=== PATIENT | male | born 1995 | race Caucasian/White ===

== ENCOUNTER 2021-04-15 09:12 | Emergency (ER) | payer SELFPAY ==
--- NOTE | 2021-04-15 09:28 | XR_ITS ---
PROCEDURE INFORMATION: Exam: XR Right Ankle Exam date and time: 04/15/2021 9:28 AM Age: 25 years old Clinical indication: Pain; Ankle; Right; Additional info: Twisted ankle TECHNIQUE: Imaging protocol: XR Right ankle. Views: 3 or more views. COMPARISON: No relevant prior studies available. FINDINGS: Bones/joints: No acute bony injury or malalignment in the visualized right ankle. Soft tissues: Mild soft tissue swelling. IMPRESSION: No acute bony injury or malalignment in the visualized right ankle.
[2021-04-15 09:30] VITALS: BP 136/87; PULSE 76; RESP 16; TEMP 37; O2SAT 98; BMI 23.9
--- NOTE | 2021-04-15 09:53 | HMH.EDUTC ---
[facility] [place] Disposition Clinical Impression: Ankle sprain Qualifiers: Encounter type: initial encounter Involved ligament of ankle: other ligament Laterality: right Qualified Code(s): S93.491A - Sprain of other ligament of right ankle, initial encounter Disposition: Home, Self-Care Condition on Discharge: Good Instructions: How To Perform RICE (Rest, Ice, Compress, Elevate) Additional Instructions: *weight bearing as tolerated *RICE, Rest the extremity, Ice 15-20 minutes 3-4 times daily, Compress- wear the job wrap as discussed as much as possible to help reduce swelling and pain, Elevate the extremity when at rest *Job wrap/air splint is for support and help control swelling, use it except in the shower. Be sure that is not to tight but not to loose either *Elevate when resting *Ibuprofen every 6-8 hours as needed for pain an inflammation. 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 Referrals: Provider,Referral, MD [Primary Care Provider] - As needed Time of Disposition: 10:11 Medical Decision Making - Davion Inquiry Pt receiving controlled substance: No Davion was queried for this patient: No Vital Signs: 04/15/21 09:30 04/15/21 10:23 Temperature 98.6 F 98.3 F Temperature Source Oral Pulse Rate 78 Pulse Rate [Left Radial] 76 Respiratory Rate 16 18 Blood Pressure 132/85 Blood Pressure [Right Arm] 136/87 Blood Pressure Mean [Right Arm] 103 02 Sat by Pulse Oximetry 98 Oxygen Delivery Method Room Air - Radiology Data #1 Image(s): Ankle Image Reviewed: Yes I have reviewed radiologist's interpretation IMPRESSION: No acute bony injury or malalignment in the visualized right ankle. [facility] [place] HPI - General Stated complaint: right ankle injury Time Seen by Provider: 04/15/21 09:57 Mode of Arrival: Ambulatory Source of Information: Patient Limitations: No Limitations Description of Symptoms (Recalled from Triage Doc. by RN): Right ankle injury, happened HEENT Symptoms (Recalled from RN notes): No Resp Symptoms (Recalled from RN notes): No Skin Symptoms (Recalled from RN notes): No MS Symptoms (Recalled from RN notes): Yes Functional Status (Recalled from RN notes): na - History of Present Illness Provider Complaint: Patient states that he slipped and twisted his right ankle on States that ever since he has been having pain and swelling in his right ankle area State that hurts at times when he walks on it States that he has been taking Motrin and it helps some with the pain Denies any other injury - Related Data Allergies Allergy/AdvReac Type Severity Reaction Status Date / Time No Known Allergies Allergy Verified 04/15/21 09:55 - Worker's Comp Is this a Worker's Comp case?: No [facility] History - Hepatitis A Screen Drug use history?: No High risk sexual behaviors?: No History of sexually transmitted infection?: No Currently employed?: No Childcare worker?: No Do you have indoor plumbing?: Yes Do you have electricity?: Yes Attestation statement:: This patient has been screened for Hepatitis A risk factors. I have reviewed the patient's past medical history: Yes ROS Obtained: Yes All systems reviewed & no additional complaints, Yes Systems reviewed as appropriate & no additional complaints - Constitutional Constitutional: Reports system reviewed and no additional complaints, except as docu - ENT Ears, Nose, Mouth, and Throat: Reports system reviewed and no additional complaints, except as docu - Cardiovascular Cardiovascular: Reports system reviewed and no additional complaints, except as docu - Respiratory
[2021-04-15 10:23] VITALS: BP 132/85; PULSE 78; RESP 18; TEMP 36.8
== END 2021-04-15 10:24 | disposition home or self-care (01) ==
PROVIDERS: Emergency Provider Nurse Practitioner
DX: S93.491A Sprain of other ligament of right ankle, initial encounter (principal); W01.0XXA Fall on same level from slipping, tripping and stumbling without subsequent striking against object, initial encounter; Y92.019 Unspecified place in single-family (private) house as the place of occurrence of the external cause
CPT/HCPCS: 29515; 73610; 99202; G0463

== ENCOUNTER 2024-05-11 14:53 | Emergency (ER) | payer SELFPAY ==
[2024-05-11 14:55] VITALS: BP 149/100; PULSE 95; RESP 18; TEMP 37.2; O2SAT 98; BMI 24.6
[2024-05-11 15:00] VITALS: BP 149/100; PULSE 93; RESP 16; O2SAT 96
--- NOTE | 2024-05-11 15:25 | HMH.EDGENADL ---
Discharge Plan Disposition Patient Disposition: Home, Self-Care Condition: Good Prescriptions Prescriptions: No Action No Known Home Medications Referrals Follow up/Referrals: Denilson Mcnair MD [Staff Physician] - See instructions (Abdominal lymphadenopathy) Provider,MD Ashley [Primary Care Provider] - See instructions Activity Restrictions/Add. Instructions Additional Instructions/Restrictions: Please take 10 capfuls of MiraLAX in 32 ounces of grape Gatorade. May need to take MiraLAX daily to decrease stool burden. Follow-up with your PCP. I have referred you to hematology oncology for a significant amount of lymph nodes in your abdomen that are nonspecific. Please follow-up with your PCP for recheck in 1 week. Return to ER for any worsening signs or symptoms as needed. Clinical Impressions Clinical Impression: Lymphadenopathy Constipation Qualifiers: Constipation type: unspecified constipation type Qualified Code(s): K59.00 - Constipation, unspecified Instructions Patient Instructions: DI for Constipation, DI for Lymphadenopathy Discharge ED Provider: Dinesh Reyes General Adult HPI <ALONSO Whiting - Last Filed: 05/11/24 19:20> General Chief complaint: PAIN Stated complaint: fever 102, lower back pain Time Seen by Provider: 05/11/24 15:25 Mode of Arrival: Ambulatory Source of Information: Patient Limitations: No Limitations Description of Symptoms (Recalled from ER Triage Doc. by RN): Patient states he has lower back pain with fever for 4 days. Denies N/V/D. States that he was seen by his PCP and was instructed to come to the ER for further evaluation. History of Present Illness HPI narrative: She presents for lower back pain and fever for the last 4 days. Patient states his symptoms get better with Tylenol but come right back when the Tylenol wears off. He denies nausea vomiting diarrhea chest pain shortness of breath hemoptysis hematochezia melena. Related Data Home Medications Medication Instructions Recorded Confirmed No Known Home Medications 05/11/24 05/11/24 Allergies Allergy/AdvReac Type Severity Reaction Status Date / Time No Known Allergies Allergy Verified 05/11/24 13:47 PFSH <ALONSO Whiting - Last Filed: 05/11/24 19:20> [facility] Disclaimer: The information contained in this section may have been updated after the patient was seen, as this information can be updated by other users. Medical History (Updated 05/11/24 @ 17:42 by ALONSO Whiting) Ankle sprain Surgical History (Updated 05/11/24 @ 13:48 by Lori Shaver) No significant past surgical history Family History (Updated 05/11/24 @ 13:48 by Lori Shaver) Other No significant family history Social History (Updated 05/11/24 @ 13:48 by Lori Shaver) Smoking Status: Never smoker alcohol intake: never current occupational status: employed Travel in the last 8 weeks: None <ALONSO Whiting - Last Filed: 05/11/24 19:20> ROS Obtained: Yes Systems reviewed as appropriate & no additional complaints except as documented Physical Exam <ALONSO Whiting - Last Filed: 05/11/24 19:20> General General appearance: alert and in no apparent distress Respiratory Respiratory exam: Present normal lung sounds bilaterally; Absent wheezes or stridor Cardiovascular Cardiovascular exam: Present regular rate and normal rhythm Abdominal Exam Abdominal exam: Present soft, tenderness (Slightly more focal in the right lower quadrant) and normal bowel sounds; Absent guarding, rebound or rigidity Extremities Exam Extremities exam: Present normal inspection and full ROM Back Exam Back exam: Present normal inspection, full ROM, tenderness (Slightly to palpation and percussion on the right) and CVA tenderness (R); Absent CVA tenderness (L) Neurological Exam Neurological exam: Present alert and oriented X3 Medical Decision Making <ALONSO Whiting - Last Filed: 05/11/24 19:20> Medical Records Medical records reviewed: Yes I reviewed the patient's medical records. Davion Inquiry Pt receiving controlled substance: No Vital Signs: 05/11/24 14:55 05/11/24 15:00 05/11/24 15:31 Temperature 98.9 F Temperature Source Oral Pulse Rate 93 H 101 H Pulse Rate [Radial] 95 H Respiratory Rate 18 16 Blood Pressure 149/100 H 163/98 H Blood Pressure [Right Arm] 149/100 H Blood Pressure Mean [Right Arm] 116 Blood Pressure Source Blood Pressure Source [Right Arm] Automatic Cuff Blood Pressure Position Blood Pressure Position [Right Arm] Sitting 02 Sat by Pulse Oximetry 98 96 97 Oxygen Delivery Method Room Air Room Air Room Air 05/11/24 16:14 05/11/24 17:33 05/11/24 17:43 Temperature 98.6 F Temperature Source Oral Pulse Rate 86 78 70 Pulse Rate [Radial] Respiratory Rate 18 Blood Pressure 140/86 124/84 124/84 Blood Pressure [Right Arm] Blood Pressure Mean [Right Arm] Blood Pressure Source Automatic Cuff Blood Pressure Source [Right Arm] Blood Pressure Position Sitting Blood Pressure Position [Right Arm] 02 Sat by Pulse Oximetry 97 98 Oxygen Delivery Method Room Air Room Air Room Air Lab Data Lab results reviewed: Yes I reviewed the patient's lab results. Lab Results 05/11/24 15:20: WBC 9.5, RBC 4.89, Hgb 15.0, Hct 45.3, MCV 92.7, MCH 30.6, MCHC 33.0, RDW 13.4, Plt Count 213, MPV 7.1 L, Neut % (Auto) 84.9 H, Lymph % (Auto) 7.8 L, [place] % (Auto) 6.5, Eos % (Auto) 0.1, Baso % (Auto) 0.7, Neut # (Auto) 8.1 H, Lymph # (Auto) 0.7, [place] # (Auto) 0.6, Eos # (Auto) 0.0, Baso # (Auto) 0.1, Sodium 132 L, Potassium 3.9, Chloride 97 L, Carbon Dioxide 25, Anion Gap 13.9, BUN 11, Creatinine 0.90, Estimated Creat Clear 125, Estimated GFR 99, Est GFR ( Amer) 120, Glucose 138 H, Lactate 0.9, Calcium 9.5, Total Bilirubin 0.8, AST 57, ALT 47, Alkaline Phosphatase 64, Total Protein 8.2, Albumin 4.7, Globulin 3.5 H, Albumin/Globulin Ratio 1.3, Lipase 71 05/11/24 16:14: Urine Color Yellow, Urine Appearance Clear, Urine pH 6.5, Ur Specific [place] <= 1.005, Urine Protein Negative, Urine Glucose (UA) Negative, Urine Ketones Negative, Urine Blood Trace-i, Urine Nitrate Negative, Urine Bilirubin Negative, Urine Urobilinogen 0.2, Ur Leukocyte Esterase Trace, Urine RBC 3-5, Urine WBC 3-5, Ur Squamous Epith Cells 3-5, Urine Bacteria Trace 05/11/24 15:20 05/11/24 15:20 Orders (Tests/Meds): ED MEDICATIONS Discontinued Medications Generic Name Dose Route Start Last Admin Trade Name Chepeq PRN Reason Stop Dose Admin Acetaminophen 1,000 mg 05/11/24 15:32 05/11/24 15:46 Acetaminophen 1,000mg/100ml Vial IV 05/11/24 15:33 1,000 mg ONCE ONE Administration Lactated Ringer's 1,000 mls @ 999 mls/hr 05/11/24 15:32 05/11/24 15:47 Lactated Ringer's 1000 Ml Bag IV 05/11/24 16:32 999 mls/hr .Q1H1M ONE Administration Iopamidol 75 ml 05/11/24 16:21 05/11/24 16:22 Iopamidol-370 (76%);100ml Bottle IV 05/11/24 16:22 75 ml ONCE ONE Administration Ketorolac Tromethamine 15 mg 05/11/24 15:32 05/11/24 15:46 Ketorolac 30mg/Ml Vial IV 05/11/24 15:33 15 mg ONCE ONE Administration Sodium Chloride 10 ml 05/11/24 16:21 05/11/24 16:22 Sodium Chloride 0.9% 10ml Syr (Rad Only) IV 05/11/24 16:22 10 ml ONCE ONE Administration ORDERS Category Date Time Status CT abdomen pelvis w con Stat Cat Scan 05/11/24 15:32 Completed Chest XR -- portable [XR chest portable] Stat Exams 05/11/24 15:33 Completed CBC w/Auto Diff [Complete Blood Count Auto Diff] Stat Lab 05/11/24 15:20 Completed CMP [Comprehensive Metabolic Panel] Stat Lab 05/11/24 15:20 Completed Lactic Acid Stat Lab 05/11/24 15:20 Completed Lipase Stat Lab 05/11/24 15:20 Completed UA [Urinalysis and Microscopic] Stat Lab 05/11/24 16:14 Completed Medical Decision Narrative: In summary patient is a 28-year-old male who presents to the emergency department for evaluation of back pain and fever. Patient is hemodynamically stable upon arrival, afebrile. Physical exam is remarkable for significant diaphoresis of his back along with some bilateral very low back paraspinous muscle tenderness with no midline tenderness and some mild right lower quadrant tenderness to palpation.. Differential diagnosis includes ammonia versus pyelonephritis versus pancreatitis versus myalgias versus viral syndrome etc. Initial workup will be conducted with hematologic labs CT scan abdomen pelvis chest x-ray. Initial interventions include crystalloid bolus Toradol Tylenol. Initial workup reviewed by me shows that his hematologic labs are nonactionable urinalysis is bland however my informal review of his CT of the abdomen pelvis shows retroperitoneal lymphadenopathy along with some intraperitoneal lymphadenopathy but otherwise no other acute processes and my informal review of his plain film chest x-ray shows no acute processes. Upon repeat evaluation patient reports improvement and complete resolution of his constitutional symptoms after initial intervention. Given this is appropriate for discharge home with referral back to his PCP as well as a referral to hematology oncology for his lymphadenopathy. <Dinesh Reyes MD - Last Filed: 05/11/24 22:22> Vital Signs: 05/11/24 14:55 05/11/24 15:00 05/11/24 15:31 Temperature 98.9 F Temperature Source Oral Pulse Rate 93 H 101 H Pulse Rate [Radial] 95 H Respiratory Rate 18 16 Blood Pressure 149/100 H 163/98 H Blood Pressure [Right Arm] 149/100 H Blood Pressure Mean [Right Arm] 116 Blood Pressure Source Blood Pressure Source [Right Arm] Automatic Cuff Blood Pressure Position Blood Pressure Position [Right Arm] Sitting 02 Sat by Pulse Oximetry 98 96 97 Oxygen Delivery Method Room Air Room Air Room Air 05/11/24 16:14 05/11/24 17:33 05/11/24 17:43 Temperature 98.6 F Temperature Source Oral Pulse Rate 86 78 70 Pulse Rate [Radial] Respiratory Rate 18 Blood Pressure 140/86 124/84 124/84 Blood Pressure [Right Arm] Blood Pressure Mean [Right Arm] Blood Pressure Source Automatic Cuff Blood Pressure Source [Right Arm] Blood Pressure Position Sitting Blood Pressure Position [Right Arm] 02 Sat by Pulse Oximetry 97 98 Oxygen Delivery Method Room Air Room Air Room Air Lab Data Lab Results 05/11/24 15:20: WBC 9.5, RBC 4.89, Hgb 15.0, Hct 45.3, MCV 92.7, MCH 30.6, MCHC 33.0, RDW 13.4, Plt Count 213, MPV 7.1 L, Neut % (Auto) 84.9 H, Lymph % (Auto) 7.8 L, [place] % (Auto) 6.5, Eos % (Auto) 0.1, Baso % (Auto) 0.7, Neut # (Auto) 8.1 H, Lymph # (Auto) 0.7, [place] # (Auto) 0.6, Eos # (Auto) 0.0, Baso # (Auto) 0.1, Sodium 132 L, Potassium 3.9, Chloride 97 L, Carbon Dioxide 25, Anion Gap 13.9, BUN 11, Creatinine 0.90, Estimated Creat Clear 125, Estimated GFR 99, Est GFR ( Amer) 120, Glucose 138 H, Lactate 0.9, Calcium 9.5, Total Bilirubin 0.8, AST 57, ALT 47, Alkaline Phosphatase 64, Total Protein 8.2, Albumin 4.7, Globulin 3.5 H, Albumin/Globulin Ratio 1.3, Lipase 71 05/11/24 16:14: Urine Color Yellow, Urine Appearance Clear, Urine pH 6.5, Ur Specific [place] <= 1.005, Urine Protein Negative, Urine Glucose (UA) Negative, Urine Ketones Negative, Urine Blood Trace-i, Urine Nitrate Negative, Urine Bilirubin Negative, Urine Urobilinogen 0.2, Ur Leukocyte Esterase Trace, Urine RBC 3-5, Urine WBC 3-5, Ur Squamous Epith Cells 3-5, Urine Bacteria Trace Orders (Tests/Meds): ED MEDICATIONS Discontinued Medications Generic Name Dose Route Start Last Admin Trade Name Freq PRN Reason Stop Dose Admin Acetaminophen 1,000 mg 05/11/24 15:32 05/11/24 15:46 Acetaminophen 1,000mg/100ml Vial IV 05/11/24 15:33 1,000 mg ONCE ONE Administration Lactated Ringer's 1,000 mls @ 999 mls/hr 05/11/24 15:32 05/11/24 15:47 Lactated Ringer's 1000 Ml Bag IV 05/11/24 16:32 999 mls/hr .Q1H1M ONE Administration Iopamidol 75 ml 05/11/24 16:21 05/11/24 16:22 Iopamidol-370 (76%);100ml Bottle IV 05/11/24 16:22 75 ml ONCE ONE Administration Ketorolac Tromethamine 15 mg 05/11/24 15:32 05/11/24 15:46 Ketorolac 30mg/Ml Vial IV 05/11/24 15:33 15 mg ONCE ONE Administration Sodium Chloride 10 ml 05/11/24 16:21 05/11/24 16:22 Sodium Chloride 0.9% 10ml Syr (Rad Only) IV 05/11/24 16:22 10 ml ONCE ONE Administration ORDERS Category Date Time Status CT abdomen pelvis w con Stat Cat Scan 05/11/24 15:32 Completed Chest XR -- portable [XR chest portable] Stat Exams 05/11/24 15:33 Completed CBC w/Auto Diff [Complete Blood Count Auto Diff] Stat Lab 05/11/24 15:20 Completed CMP [Comprehensive Metabolic Panel] Stat Lab 05/11/24 15:20 Completed Lactic Acid Stat Lab 05/11/24 15:20 Completed Lipase Stat Lab 05/11/24 15:20 Completed UA [Urinalysis and Microscopic] Stat Lab 05/11/24 16:14 Completed Medical Decision Narrative: In summary patient is a 28-year-old male who presents to the emergency department for evaluation of back pain and fever. Patient is hemodynamically stable upon arrival, afebrile. Physical exam is remarkable for significant diaphoresis of his back along with some bilateral very low back paraspinous muscle tenderness with no midline tenderness and some mild right lower quadrant tenderness to palpation.. Differential diagnosis includes ammonia versus pyelonephritis versus pancreatitis versus myalgias versus viral syndrome etc. Initial workup will be conducted with hematologic labs CT scan abdomen pelvis chest x-ray. Initial interventions include crystalloid bolus Toradol Tylenol. Initial workup reviewed by me shows that his hematologic labs are nonactionable urinalysis is bland however my informal review of his CT of the abdomen pelvis shows retroperitoneal lymphadenopathy along with some intraperitoneal lymphadenopathy but otherwise no other acute processes and my informal review of his plain film chest x-ray shows no acute processes. Upon repeat evaluation patient reports improvement and complete resolution of his constitutional symptoms after initial intervention. Given this is appropriate for discharge home with referral back to his PCP as well as a referral to hematology oncology for his lymphadenopathy. I was consulted by the GAYE, and we discussed the complexity of the problems being addressed. I approved the treatment and management plan for this patient's care in the emergency department, thus performing a substantive portion of the medical decision making. There is an appendicolith on the CT however patient does not have a his pain in his right lower quadrant over his appendix, no other appendicitis findings, no leukocytosis, there is lymphadenopathy which she will follow-up on an outpatient basis for, however. Dinesh Reyes MD Critical Care <ALONSO Whiting - Last Filed: 05/11/24 19:20> Critical Care Time Critical Care Time: No
[2024-05-11 15:31] VITALS: BP 163/98; PULSE 101; O2SAT 97
--- NOTE | 2024-05-11 15:32 | CT_ITS ---
PROCEDURE INFORMATION: Exam: CT Abdomen And Pelvis With Contrast Exam date and time: 05/11/2024 4:23 PM Age: 28 years old Clinical indication: Fever and other: Pain; Additional info: Right lower quadrant tenderness, fever, bilateral TECHNIQUE: Imaging protocol: Computed tomography of the abdomen and pelvis with contrast. Radiation optimization: All CT scans at this facility use at least one of these dose optimization techniques: automated exposure control; mA and/or kV adjustment per patient size (includes targeted exams where dose is matched to clinical indication); or iterative reconstruction. Contrast material: ISOVUE; Contrast volume: 75 ml; Contrast route: IV; COMPARISON: CR XR CHEST PORTABLE 05/11/2024 4:20 PM FINDINGS: Lungs: Scattered granulomatous calcifications within the mediastinum in the lower lung zones. No infiltrates. Liver: Liver is unremarkable. No mass or enlargement detected. Gallbladder and bile ducts: Normal. No calcified stones. No ductal dilation. Pancreas: Unremarkable. Main pancreatic duct is not significantly dilated. Spleen: Spleen is mildly enlarged with few chronic granulomatous calcifications present. Adrenal glands: Normal. No mass. Kidneys and ureters: Kidneys are unremarkable. No calculi or hydronephrosis detected. Stomach and bowel: Moderate degree of retained stool throughout the large bowel that may reflect some degree of constipation. Appendix: There is a 1.2 cm nodular calcification that may reside within the distal appendix which is situated within the right mid pelvis. However appendix is otherwise unremarkable. No compelling evidence of acute appendicitis. Intraperitoneal space: Unremarkable. No free air. No significant fluid collection. Vasculature: Abdominal aorta is unremarkable. No evidence of aortic aneurysm or dissection. Lymph nodes: Mild, indistinct retroperitoneal lymphadenopathy at the aortic bifurcation as well as the right iliac patria chain and right groin site, nonspecific. Urinary bladder: Subtle nodular thickening along the anterior wall the urinary bladder without discrete mass, nonspecific. Urinary bladder is otherwise unremarkable. Reproductive: Unremarkable as visualized. Bones/joints: Unremarkable. No acute fracture. Soft tissues: Unremarkable. IMPRESSION: 1. 1.2 cm appendicolith within the distal portion of the appendix which is otherwise unremarkable. No compelling evidence of acute appendicitis. 2. Mild retroperitoneal, right pelvic and right inguinal lymphadenopathy etiology of which is unclear. Recommend repeat study in 3 months for continued surveillance. 3. Subtle focal thickening along the anterior bladder wall, nonspecific. This could also be reassessed on follow-up study in 3 months. 4. Moderate degree of retained stool throughout the large bowel. Please correlate for constipation. 5. Mild splenomegaly 6. Chronic granulomatous calcifications lower lung zones and mediastinum.
--- NOTE | 2024-05-11 15:33 | XR_ITS ---
PROCEDURE INFORMATION: Exam: XR Chest Exam date and time: 05/11/2024 4:20 PM Age: 28 years old Clinical indication: Fever; Additional info: Fever bilateral low back pain TECHNIQUE: Imaging protocol: Radiologic exam of the chest. Views: 1 view. COMPARISON: No relevant prior studies available. FINDINGS: Lungs: Few small calcified granulomata. Lungs are otherwise clear. No consolidation. Pleural spaces: No pleural effusion. No pneumothorax. Heart/Mediastinum: Cardiomediastinal silhouette is normal. Bones/joints: No acute abnormality. IMPRESSION: No acute findings.
[2024-05-11 15:43] LABS: Chloride 97 mmol/L (98-107); Sodium 132 mmol/L (136-145)
[2024-05-11 15:44] LABS: Basophils # 0.1 K/mm3 (0-0.2); Basophils % 0.7 % (0.1-2.0); Eosinophils % 0.1 % (0.1-12.0); Hematocrit 45.3 % (42.0-52.0); Lymphocytes # 0.7 K/mm3 (0.7-4.5); Lymphocytes % 7.8 % (10-50); Mean Corpuscular Hemoglobin 30.6 pg (27.0-31.2); Mean Corpuscular Volume 92.7 fl (80-94); Mean Platelet Volume 7.1 fl (7.4-10.4); Monocytes # 0.6 K/mm3 (0.1-1.0); Monocytes % 6.5 % (1.7-9.3); Neutrophils # 8.1 K/mm3 (1.8-7.8); Neutrophils % 84.9 % (37.0-80.0); Platelet Count 213 K/mm3 (142-424); Potassium 3.9 mmoL/L (3.5-5.1); Red Blood Count 4.89 M/mm3 (4.60-6.20); Red Cell Distribution Width 13.4 % (11.5-17.5); White Blood Count 9.5 K/mm3 (4.8-10.8)
[2024-05-11 15:46] LABS: Alanine Aminotransferase 47 U/L (12-78); Albumin Level 4.7 g/dl (3.5-5.0); Albumin/Globulin Ratio 1.3 (1.1-1.8); Alkaline Phosphatase 64 U/L (38-126); Anion Gap 13.9 mEq/L (5-15); Aspartate Amino Transferase 57 U/L (17-59); Bilirubin,Total 0.8 mg/dl (0.2-1.3); Blood Urea Nitrogen 11 mg/dl (9-20); Calcium 9.5 mg/dl (8.4-10.2); Carbon Dioxide 25 mmol/L (22.0-30.0); Creatinine Clearance Estimated 125 mL/min (50-200); Estimated Glomerular Filt Rate 99 ml/min (>60); GFR (African American) 120 ML/MIN (>60); Globulin 3.5 g/dL (1.3-3.2); Glucose 138 mg/dl (74-100); Lipase 71 U/L (23-300); Total Protein,Serum 8.2 g/dl (6.3-8.2)
[2024-05-11] MEDS: ACETAMINOPHEN 1,000MG/100ML VIAL 1000 MG IV (15:46)
[2024-05-11] MEDS: KETOROLAC 30MG/ML VIAL 15 MG IV (15:46)
[2024-05-11] MEDS: LACTATED RINGERS 1000ML 1,000 ML 999 ML IV (15:47)
[2024-05-11 15:53] LABS: Lactic Acid 0.9 mmol/L (0.7-2.1)
[2024-05-11 16:14] VITALS: BP 140/86; PULSE 86; O2SAT 97
--- NOTE | 2024-05-11 16:14 | PC.NURSE ---
Rounded on pt. No needs voiced at this time. Call light within reach.
[2024-05-11] MEDS: SODIUM CHLORIDE 0.9% 10ML SYR (RAD ONLY) 10 ML IV (16:22)
[2024-05-11] MEDS: IOPAMIDOL-370 (76%);100ML BOTTLE 75 ML IV (16:22)
[2024-05-11 17:26] LABS: Microscopic, Urine URINE MICROSCOPIC (MICROSCOPIC)
[2024-05-11 17:29] LABS: Appearance,Urine CLEAR (Clear); Bilirubin,Urine Negative (Negative); Blood, Urine TRACE-I (Negative); Color,Urine YELLOW (Yellow); Glucose,Urine (UA) Negative (Negative); Ketones,Urine Negative (Negative); Leukocyte Esterase,Urine TRACE (Negative); Nitrate,Urine Negative (Negative); PH,Urine 6.5 (5.0-8.5); Protein,Urine Negative (Negative); Specific Gravity, Urine <= 1.005 (1.005-1.030); Urobilinogen,Urine 0.2 EU/dl (0.2)
[2024-05-11 17:33] VITALS: BP 124/84; PULSE 78; O2SAT 98
[2024-05-11 17:43] VITALS: BP 124/84; PULSE 70; RESP 18; TEMP 37; O2SAT 96
[2024-05-11 17:50] LABS: Bacteria,Urine Trace /lpf
== END 2024-05-11 17:49 | disposition home or self-care (01) ==
PROVIDERS: Physician Assistant; Emergency Provider Emergency Medicine
DX: R59.0 Localized enlarged lymph nodes; R10.813 Right lower quadrant abdominal tenderness; M54.59 Other low back pain; R50.9 Fever, unspecified; K59.00 Constipation, unspecified; E87.1 Hypo-osmolality and hyponatremia
CPT/HCPCS: 71045; 74177; 80053; 81001; 83605; 83690; 85025; 96361; 96374; 96375; 99285; J0131; J1885; J7120; Q9967